=== PATIENT | male | born 1955 | race Caucasian/White ===

== ENCOUNTER 2022-12-29 02:46 | Emergency (ER) | payer MEDICARE ==
[~2022-12-29] VITALS: Ht 172.7 cm; Wt 79.4 kg
[2022-12-29] MEDS ORDERED: SENSIPAR30 MG PO (03:08)
[2022-12-29] MEDS ORDERED: DEPAKOTE250 MG PO (03:09)
[2022-12-29] MEDS ORDERED: MELATONIN10 M2 PO (03:09)
[2022-12-29] MEDS ORDERED: LISINOPRIL30 MG PO (03:09)
[2022-12-29] MEDS ORDERED: NIFEDIPINE ER90 M1 PO (03:10)
[2022-12-29] MEDS ORDERED: LOPRESSOR50 M1 PO (03:10)
[2022-12-29] MEDS ORDERED: QUETIAPINE FUM200 MG PO (03:10)
[2022-12-29] MEDS ORDERED: TRAZODONE50 MG PO (03:11)
[2022-12-29] MEDS ORDERED: RIVASTIGMINE T4.5 M1 PO (03:11)
[2022-12-29] MEDS ORDERED: HYDROXYZINE HCL50 MG PO (03:14)
[2022-12-29 03:16] LABS: BASO # 0.1 10*3/uL (0.0-0.1); BASO % 0.9 % (0.0-1.0); EOS # 0.3 10*3/uL (0.0-0.4); EOS % 3.3 % (1.0-4.0); HEMATOCRIT 51.8 % (42.0-52.0); LYMPH # 2.4 10*3/uL (1.3-4.4); MEAN CELL VOLUME 93.3 fl (80.0-94.0); MEAN CORPUSCULAR HGB 31.4 pg (27.0-31.0); MEAN CORPUSCULAR HGB CONC 33.6 g/dl (33.0-37.0); MEAN PLATELET VOLUME 11.4 fl (9.6-12.3); MONO # 0.5 10*3/uL (0.1-1.0); MONO % 6.3 % (3.0-9.0); NEUT # 4.9 10*3/uL (2.3-7.9); NEUT % 60.3 % (47.0-73.0); PLATELET COUNT AUTOMATED 208 10*3/uL (130-400); RED BLOOD COUNT 5.55 10*6/uL (4.50-5.90); RED CELL DISTRI WIDTH 13.2 % (0-14.5); WHITE BLOOD COUNT 8.1 10*3/uL (4.8-10.8)
[2022-12-29 03:27] LABS: ACT PARTIAL THROMBO TIME 29.8 SECONDS (20.0-32.1)
[2022-12-29 03:38] LABS: ALKALINE PHOSPHATASE 127 U/L (46-116); BUN 7 mg/dl (9-23); CHLORIDE 111 mmol/L (98-107); CPK 43 U/L (34-171); ETHYL ALCOHOL < 3.0 mg/dl (<3); LIPASE 79 U/L (12-53); POTASSIUM 3.4 mmol/L (3.4-5.1); SGPT/ALT 12 U/L (5-49); TOTAL PROTEIN 6.6 gm/dL (6.0-8.0)
[2022-12-29 03:44] LABS: URINE AMPHETAMINES Negative (1000ng/ml); URINE BARBITURATES Negative (200ng/ml); URINE BENZODIAZEPINES Negative (200ng/ml); URINE CANNABINOIDS (THC) Negative (50ng/ml); URINE COCAINE Negative (300ng/ml); URINE METHADONE Negative (300ng/ml); URINE OPIATES Negative (300ng/ml); URINE PHENCYCLIDINE Negative (25ng/ml)
[2022-12-29 06:30] LABS: BILIRUBIN Negative (Negative); BLOOD 3+ (Negative); CLARITY Cloudy (Clear); COLOR Yellow (Yellow); GLUCOSE Negative (Negative); KETONE Negative (Negative); LEUKO ESTERASE Trace (Negative); NITRITE Negative (Negative); SPECIFIC GRAVITY 1.015 (1.001-1.030); UROBILINOGEN 0.2 E.U./dl (0.0-1.0)
[2022-12-29 06:48] LABS: BACTERIA TRACE; RBC TNTC rbc/hpf (0-2)
[2022-12-29 06:49] LABS: COARSE GRANULAR CAST 0-2; MUCOUS 1+
[2022-12-29] MEDS ORDERED: FINASTERIDE5 M1 PO (09:39)
== END 2022-12-29 03:06 | disposition admitted as inpatient to this hospital (09) ==
LOC: ED 02:46
PROVIDERS: Internal Medicine
DX: F03.90 Unspecified dementia, unspecified severity, without behavioral disturbance, psychotic disturbance, mood disturbance, and anxiety (principal); F22 Delusional disorders; Z79.899 Other long term (current) drug therapy